=== PATIENT | male | born 1945 | race Caucasian/White ===

== ENCOUNTER 2019-09-05 06:48 | Day surgery (SDC) | payer OTHER ==
[~2019-09-05] VITALS: Ht 177.8 cm; Wt 89.3 kg
[~2019-09-05 06:48] MED LIST: ASPI81CH PO; ASPI81EC; Aspirin EC81 MG; B Complex #11 EACH PO; CLOP75 PO; CVS GLUCOSAMIN PO; Chondroitin Su250 MG PO; DIPASPER PO; Daily Multiple1 EACH PO; EXFORGE; FISH1000; FISH1000 PO; GLUC500 PO; INSU100I6 INJ; INSUASPI; INSULANPEN INJ; LOSARTAN POTAS100 M1; LOSARTAN POTAS100 MG PO; MULVITMINF; ONDA8 PO; OXYB5 PO; Oxybutynin Chlo15 MG PO; PRAV20 PO; ROSU5; Red Yeast Rice600 MG PO; TAMS.4ER; VALS80; [UNRECOGNIZED DRUG - OTHER]
== END 2019-09-05 08:52 | disposition home or self-care (01) ==
LOC: ORSCSDS 06:48
PROVIDERS: Surgery
PROC: 0DBH8ZX Excision of Cecum, Via Natural or Artificial Opening Endoscopic, Diagnostic (ICD-10-PCS; principal; 2019-09-05 08:00)
DX: Z12.11 Encounter for screening for malignant neoplasm of colon (principal); Z86.010 Personal history of colon polyps; G47.33 Obstructive sleep apnea (adult) (pediatric); K57.30 Diverticulosis of large intestine without perforation or abscess without bleeding; E11.9 Type 2 diabetes mellitus without complications; E78.5 Hyperlipidemia, unspecified; K21.9 Gastro-esophageal reflux disease without esophagitis; Z80.0 Family history of malignant neoplasm of digestive organs; Z79.01 Long term (current) use of anticoagulants; Z87.891 Personal history of nicotine dependence; Z79.899 Other long term (current) drug therapy
CPT/HCPCS: 82947; 88305; J2405; J2704; J7120

== ENCOUNTER 2024-10-24 06:32 | Day surgery (SDC) | payer OTHER ==
[~2024-10-24] VITALS: Ht 175.3 cm; Wt 89.9 kg
[~2024-10-24 06:32] MED LIST changes: +Balanced Salt Epinephrine Irrigation Solution 500 mL IR SCH; +Diazepam 5 MG Tab PO PRN; +Diazepam 5 MG Tab PO SCH; +Lidocaine HCl/Pf 1% 5 ML VIAL XX SCH; +Moxifloxacin HCL 0.5 MG/0.1 ML 0.4MLSYR RIGHTEYE SCH; +Ondansetron 4 MG SoluTab MM PRN; +PHENYLEPHRINE\\TROPICAMIDE\\TETRACAINE OPHTHALMIC DILATING SOLN RIGHTEYE PRN; +Povidone-Iodine 450 DROP/30 ML Solution ONE; +Povidone-Iodine 450 DROP/30 ML Solution RIGHTEYE SCH; +Tetracaine HCl/Pf 0.5% Opth Soln 4 ml ONE; +Triamcinolone Inj Susp 40 MG / ML 1ML Vial INJ SCH
[2024-10-24] MEDS ORDERED: Triamcinolone Inj Susp 40 MG / ML 1ML Vial ONE (06:41)
[2024-10-24] MEDS ORDERED: Lidocaine HCl/Pf 1% 5 ML VIAL ONE (06:41)
[2024-10-24] MEDS ORDERED: Diazepam 10 MG Tab ONE (06:50)
--- NOTE | 2024-10-24 07:20 | NUR ---
10/24/24 0720 Taya Varela PT STATES IN PREOP THEY ARE 0/10 ANXIETY. PT ON PULSE OX LAYING IN BED WITH CALL LIGHT IN HAND.
--- NOTE | 2024-10-24 08:07 | NUR ---
10/24/24 0807 Kallie Vale BP-167/77 P-66 SPO2-100% W/ 10L BLOW BY O2
[2024-10-24 08:20] VITALS: BP 156/75
== END 2024-10-24 08:33 | disposition home or self-care (01) ==
LOC: ORSCSDS 06:32
PROVIDERS: Ophthalmology
PROC: 08RJ3JZ Replacement of Right Lens with Synthetic Substitute, Percutaneous Approach (ICD-10-PCS; principal; 2024-10-24 08:00)
DX: E11.36 Type 2 diabetes mellitus with diabetic cataract (principal); H25.813 Combined forms of age-related cataract, bilateral; I10 Essential (primary) hypertension; H40.9 Unspecified glaucoma; Z86.73 Personal history of transient ischemic attack (TIA), and cerebral infarction without residual deficits; Z79.4 Long term (current) use of insulin; Z79.899 Other long term (current) drug therapy
CPT/HCPCS: 82947; A9270; J2003; J3301; V2632

== ENCOUNTER 2024-10-31 06:28 | Day surgery (SDC) | payer OTHER ==
[~2024-10-31] VITALS: Ht 175.3 cm; Wt 90.0 kg
[~2024-10-31 06:28] MED LIST changes: +Moxifloxacin HCL 0.5 MG/0.1 ML 0.4MLSYR LEFTEYE SCH; -Moxifloxacin HCL 0.5 MG/0.1 ML 0.4MLSYR RIGHTEYE SCH; +PHENYLEPHRINE\\TROPICAMIDE\\TETRACAINE OPHTHALMIC DILATING SOLN LEFTEYE PRN; -PHENYLEPHRINE\\TROPICAMIDE\\TETRACAINE OPHTHALMIC DILATING SOLN RIGHTEYE PRN; +Povidone-Iodine 450 DROP/30 ML Solution LEFTEYE SCH; -Povidone-Iodine 450 DROP/30 ML Solution RIGHTEYE SCH
[2024-10-31] MEDS ORDERED: Triamcinolone Inj Susp 40 MG / ML 1ML Vial ONE (06:44)
[2024-10-31] MEDS ORDERED: Lidocaine HCl/Pf 1% 5 ML VIAL ONE (06:44)
[2024-10-31] MEDS ORDERED: Diazepam 10 MG Tab ONE (06:46)
[2024-10-31] MEDS ORDERED: TOUJEO SOL300 UNIT/2 (07:08)
[2024-10-31] MEDS ORDERED: LOSA25 (07:09)
--- NOTE | 2024-10-31 07:45 | NUR ---
10/31/24 0745 Taya Varela PT STATES ANXIETY LEVEL IS A 0/10 IN PREOP. PT IN BED WITH CALL LIGHT IN HAND, PULSE OX MONITOR IN PLACE.
--- NOTE | 2024-10-31 08:13 | NUR ---
10/31/24 0813 Paradise Cam BP 172/69, HR 64, O2 100% WITH BLOW BY AT 10L.
[2024-10-31 08:30] VITALS: BP 172/86
== END 2024-10-31 08:36 | disposition home or self-care (01) ==
LOC: ORSCSDS 06:28
PROVIDERS: Ophthalmology
PROC: 08RK3JZ Replacement of Left Lens with Synthetic Substitute, Percutaneous Approach (ICD-10-PCS; principal; 2024-10-31 08:00)
DX: E11.36 Type 2 diabetes mellitus with diabetic cataract (principal); H25.812 Combined forms of age-related cataract, left eye; Z96.1 Presence of intraocular lens; H02.831 Dermatochalasis of right upper eyelid; H40.1132 Primary open-angle glaucoma, bilateral, moderate stage; H02.834 Dermatochalasis of left upper eyelid; I10 Essential (primary) hypertension; Z86.73 Personal history of transient ischemic attack (TIA), and cerebral infarction without residual deficits; Z79.4 Long term (current) use of insulin; Z79.02 Long term (current) use of antithrombotics/antiplatelets; Z79.899 Other long term (current) drug therapy
CPT/HCPCS: 82947; A9270; J2003; J3301; V2632

== ENCOUNTER 2025-01-28 12:08 | Day surgery (SDC) | payer OTHER ==
[~2025-01-28] VITALS: Ht 175.3 cm; Wt 85.4 kg
[~2025-01-28 12:08] MED LIST changes: -Balanced Salt Epinephrine Irrigation Solution 500 mL IR SCH; -Diazepam 5 MG Tab PO PRN; -Diazepam 5 MG Tab PO SCH; +LOSA25; -Lidocaine HCl/Pf 1% 5 ML VIAL XX SCH; -Moxifloxacin HCL 0.5 MG/0.1 ML 0.4MLSYR LEFTEYE SCH; -Ondansetron 4 MG SoluTab MM PRN; -PHENYLEPHRINE\\TROPICAMIDE\\TETRACAINE OPHTHALMIC DILATING SOLN LEFTEYE PRN; -Povidone-Iodine 450 DROP/30 ML Solution LEFTEYE SCH; -Povidone-Iodine 450 DROP/30 ML Solution ONE; +TOUJEO SOL300 UNIT/2; -Tetracaine HCl/Pf 0.5% Opth Soln 4 ml ONE; -Triamcinolone Inj Susp 40 MG / ML 1ML Vial INJ SCH
[2025-01-28 14:48] VITALS: BP 121/69
== END 2025-01-28 14:49 | disposition home or self-care (01) ==
LOC: ORSCSDS 12:08
PROVIDERS: Surgery
PROC: 0DBK8ZX Excision of Ascending Colon, Via Natural or Artificial Opening Endoscopic, Diagnostic (ICD-10-PCS; principal; 2025-01-28 13:45)
PROC: 0DBH8ZX Excision of Cecum, Via Natural or Artificial Opening Endoscopic, Diagnostic (ICD-10-PCS; principal; 2025-01-28 13:45)
PROC: 0DBL8ZX Excision of Transverse Colon, Via Natural or Artificial Opening Endoscopic, Diagnostic (ICD-10-PCS; principal; 2025-01-28 13:45)
DX: Z12.11 Encounter for screening for malignant neoplasm of colon (principal); D12.0 Benign neoplasm of cecum; D12.2 Benign neoplasm of ascending colon; D12.3 Benign neoplasm of transverse colon; K57.30 Diverticulosis of large intestine without perforation or abscess without bleeding; Z86.0101 Personal history of adenomatous and serrated colon polyps; Z80.0 Family history of malignant neoplasm of digestive organs; E11.9 Type 2 diabetes mellitus without complications; K21.9 Gastro-esophageal reflux disease without esophagitis; I10 Essential (primary) hypertension; E78.5 Hyperlipidemia, unspecified; G47.33 Obstructive sleep apnea (adult) (pediatric); Z86.73 Personal history of transient ischemic attack (TIA), and cerebral infarction without residual deficits; Z79.02 Long term (current) use of antithrombotics/antiplatelets; Z79.4 Long term (current) use of insulin; Z79.899 Other long term (current) drug therapy
CPT/HCPCS: 82947; 88305; J2704; J7120